=== PATIENT | male | born 1995 | race Asian ===

== ENCOUNTER → 2023-12-08 12:55 | Outpatient (CLI) | payer OTHER, MEDICAID, SELFPAY ==
[2023-12-08 18:29] LABS: Thyroid Stimulating Hormone 4.42 uIU/mL (0.47-4.68)
[2023-12-10 07:36] LABS: Triiodothyronine T3 Total 113 ng/dL (71-180)
== END ==
LOC: LAB 13:01
PROVIDERS: Referring Provider Internal Medicine Endocrinology, Diabetes & Metabolism; Visit Provider Internal Medicine Endocrinology, Diabetes & Metabolism
DX: E05.90 Thyrotoxicosis, unspecified without thyrotoxic crisis or storm (principal); E05.00 Thyrotoxicosis with diffuse goiter without thyrotoxic crisis or storm
CPT/HCPCS: 36415; 84439; 84443; 84480